=== PATIENT | female | born 1935 | race Two or more races ===

== ENCOUNTER 2018-12-22 09:53 | Inpatient (IN) | payer OTHER ==
[~2018-12-22] VITALS: Ht 165.1 cm; Wt 72.6 kg
[~2018-12-22 09:53] MED LIST: FERROUS SULFAT325 MG PO; FOLIC ACID1 MG PO; METOPROLOL SUCC25 MG PO; OMEPRAZOLE40 MG PO; SYNTHROID50 MCG PO
== END 2019-02-05 03:08 | disposition expired | DRG 329 ==
LOC: AMB-ENDOS 09:53 → O/R 16:09 → SURG 16:09 → AMB-ENDOS 16:13 → SURG 16:36 → O/R 12-23 14:48 → ICU 12-24 21:07
PROVIDERS: ADMIT Surgery
PROC: 0DBK8ZX Excision of Ascending Colon, Via Natural or Artificial Opening Endoscopic, Diagnostic (ICD-10-PCS; 2018-12-22)
PROC: 30233N1 Transfusion of Nonautologous Red Blood Cells into Peripheral Vein, Percutaneous Approach (ICD-10-PCS; 2018-12-22)
PROC: 07TB0ZZ Resection of Mesenteric Lymphatic, Open Approach (ICD-10-PCS; 2018-12-23)
PROC: 0DT80ZZ Resection of Small Intestine, Open Approach (ICD-10-PCS; 2018-12-23)
PROC: 0DNW0ZZ Release Peritoneum, Open Approach (ICD-10-PCS; 2018-12-23)
PROC: 4A033R1 Measurement of Arterial Saturation, Peripheral, Percutaneous Approach (ICD-10-PCS; 2018-12-23)
PROC: 0DTF0ZZ Resection of Right Large Intestine, Open Approach (ICD-10-PCS; principal; 2018-12-23 10:00)
PROC: 30233K1 Transfusion of Nonautologous Frozen Plasma into Peripheral Vein, Percutaneous Approach (ICD-10-PCS; 2018-12-24)
PROC: B246ZZZ Ultrasonography of Right and Left Heart (ICD-10-PCS; 2018-12-24)
PROC: 05HB33Z Insertion of Infusion Device into Right Basilic Vein, Percutaneous Approach (ICD-10-PCS; 2018-12-25)
PROC: 30233R1 Transfusion of Nonautologous Platelets into Peripheral Vein, Percutaneous Approach (ICD-10-PCS; 2018-12-29)
PROC: 3E0336Z Introduction of Nutritional Substance into Peripheral Vein, Percutaneous Approach (ICD-10-PCS; 2019-01-05)
PROC: 0DH67UZ Insertion of Feeding Device into Stomach, Via Natural or Artificial Opening (ICD-10-PCS; 2019-01-07)
PROC: 3E0G76Z Introduction of Nutritional Substance into Upper GI, Via Natural or Artificial Opening (ICD-10-PCS; 2019-01-07)
PROC: 3E0F7GC Introduction of Other Therapeutic Substance into Respiratory Tract, Via Natural or Artificial Opening (ICD-10-PCS; 2019-01-07)
PROC: B54MZZZ Ultrasonography of Right Upper Extremity Veins (ICD-10-PCS; 2019-01-13)
PROC: 0BH17EZ Insertion of Endotracheal Airway into Trachea, Via Natural or Artificial Opening (ICD-10-PCS; 2019-01-19)
PROC: 5A1955Z Respiratory Ventilation, Greater than 96 Consecutive Hours (ICD-10-PCS; 2019-01-19)
PROC: BB24ZZZ Computerized Tomography (CT Scan) of Bilateral Lungs (ICD-10-PCS; 2019-01-21)
PROC: 0W9930Z Drainage of Right Pleural Cavity with Drainage Device, Percutaneous Approach (ICD-10-PCS; 2019-01-24)
DX: C18.0 Malignant neoplasm of cecum (principal); T81.19XA Other postprocedural shock, initial encounter; T81.12XA Postprocedural septic shock, initial encounter; J96.01 Acute respiratory failure with hypoxia; B37.1 Pulmonary candidiasis; C18.2 Malignant neoplasm of ascending colon; I97.191 Other postprocedural cardiac functional disturbances following other surgery; D62 Acute posthemorrhagic anemia; D68.8 Other specified coagulation defects; T81.44XA Sepsis following a procedure, initial encounter; J81.1 Chronic pulmonary edema; J95.89 Other postprocedural complications and disorders of respiratory system, not elsewhere classified; I97.131 Postprocedural heart failure following other surgery; I47.1 Supraventricular tachycardia; I50.40 Unspecified combined systolic (congestive) and diastolic (congestive) heart failure; J91.8 Pleural effusion in other conditions classified elsewhere; D12.2 Benign neoplasm of ascending colon; R59.0 Localized enlarged lymph nodes; K59.09 Other constipation; E87.6 Hypokalemia; K66.0 Peritoneal adhesions (postprocedural) (postinfection); D69.49 Other primary thrombocytopenia; E09.9 Drug or chemical induced diabetes mellitus without complications; T38.0X5A Adverse effect of glucocorticoids and synthetic analogues, initial encounter; Y92.238 Other place in hospital as the place of occurrence of the external cause; N99.0 Postprocedural (acute) (chronic) kidney failure; I11.0 Hypertensive heart disease with heart failure; Z66 Do not resuscitate